=== PATIENT | male | born 2000 | race Two or more races ===

== ENCOUNTER 2024-05-22 15:19 | Outpatient (CLI) | payer OTHER ==
[2024-05-22 16:20] LABS: HEMOGLOBIN 15.1 g/dL (13-16.00); MEAN CELL VOLUME 89.4 fL (80.0-100.00); MEAN CORPUSCULAR HEMOGLOBIN 30.6 pg (27.00-32.0); MEAN CORPUSCULAR HGB CONC 34.2 g/dl (32.0-36.0); PLATELET COUNT 297 K/uL (150-450); RED BLOOD COUNT 4.93 M/uL (4.00-6.00); RED CELL DISTRIBUTION WIDTH 13.1 % (11.5-14.5)
[2024-05-22 16:25] LABS: URINE APPEARANCE Clear; URINE BILIRRUBIN Negative (NEGATIVE); URINE BLOOD Negative; URINE COLOR Dark Yellow; URINE GLUCOSE Negative (NEGATIVE); URINE KETONE Trace (NEGATIVE); URINE LEUKOCYTE Trace; URINE NITRATE Negative; URINE PROTEIN 30 (NEGATIVE)
[2024-05-22 16:30] LABS: URINE BACTERIA 17.6 uL (0.0-1933); URINE EPITHELIAL CELLS 3.5 uL (0.0-38.8); URINE RBC 13.4 uL (0.0-20.8); URINE WBC 9.8 uL (0.0-23.2)
[2024-05-22 16:41] LABS: INR 1.04; PARTIAL THROMBOPLASTIN TIME 31.6 SECONDS (22.0-34.0)
[2024-05-22 16:46] LABS: ALBUMIN 4.5 gm/dL (3.4-5.0); BILIRUBIN TOTAL 0.82 mg/dL (0.3-1.2); CALCIUM 9.9 mg/dL (8.5-10.1); COL EPI 106 SECONDS (82-175); CREATININE SERUM 0.97 mg/dL (0.70-1.30); GFR 93.55; GLOBULINA 3.5 G/DL (2.4-3.5); POTASSIUM 3.92 mEq/L (3.5-5.1)
[2024-05-22 16:47] LABS: PROTHROMBIN TIME 10.9 SECONDS (9.0-11.5)
== END 2024-05-22 15:25 | disposition home or self-care (01) ==
LOC: LAB 15:19
PROVIDERS: ATTEND Orthopaedic Surgery
DX: D64.9 Anemia, unspecified (principal); E88.89 Other specified metabolic disorders; D68.8 Other specified coagulation defects; N39.0 Urinary tract infection, site not specified; Z22.322 Carrier or suspected carrier of Methicillin resistant Staphylococcus aureus; E11.9 Type 2 diabetes mellitus without complications; Z76.89 Persons encountering health services in other specified circumstances; M25.562 Pain in left knee; I10 Essential (primary) hypertension